=== PATIENT | male | born 1970 | race African-American/Black ===

== ENCOUNTER → 2017-04-01 | Outpatient (CLI) | payer MEDICAID ==
--- NOTE | 2017-04-01 17:32 | RADIOLOGY REPORT (SQ) ---
EXAM DESCRIPTION: ANKLE LEFT COMPLETE; FOOT LEFT COMPLETE COMPLETED DATE/TIME: 04/01/2017 4:39 pm REASON FOR STUDY: PAIN IN LEFT ANKLE AND JOINTS OF LEFT FOOT M25.572 PAIN IN LEFT ANKLE AND JOINTS OF LEFT FOOT COMPARISON: None. NUMBER OF VIEWS: Six views. TECHNIQUE: AP, lateral, and oblique radiographic images acquired of the left ankle and left foot. LIMITATIONS: None. FINDINGS: MINERALIZATION: Normal. BONES: There is an old fracture of the distal fibula. There is peaking of the talar dome which can b e a secondary sign of tarsal coalition. JOINTS: No effusions. SOFT TISSUES: No soft tissue swelling. No foreign body. OTHER: No other significant finding. IMPRESSION: No acute findings. 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 This could be confirmed with CT. TECHNICAL DOCUMENTATION: JOB ID: [id number] [employer]- All Rights Reserved
== END ==
LOC: OD 16:21
PROVIDERS: ATTEND Family Medicine
DX: M25.572 Pain in left ankle and joints of left foot (principal)

== ENCOUNTER 2017-04-25 05:16 | Day surgery (SDC) | payer OTHER, MEDICAID ==
--- NOTE | 2017-04-18 09:34 | EKG REPORT ---
SEVERITY:- BORDERLINE ECG - SINUS RHYTHM NONSPECIFIC ST-T CHANGES ANTERIOR LEADS. : Confirmed by: Montana Wilson MD 18-Apr-2017 09:33:34
[2017-04-18 09:36] LABS: APPEARANCE,URINE CLEAR; BILIRUBIN,URINE NEGATIVE (NEGATIVE); COLOR,URINE YELLOW; GLUCOSE, URINE NEGATIVE (NEGATIVE); KETONES,URINE NEGATIVE (NEGATIVE); LEUKOCYTE ESTERASE,URINE NEGATIVE (NEGATIVE); NITRITE,URINE NEGATIVE (NEGATIVE); PROTEIN,URINE NEGATIVE (NEGATIVE); URINE SPECIFIC GRAVITY 1.023; UROBILINOGEN,URINE NEGATIVE mg/dL (<2.0)
[2017-04-18 09:43] LABS: ABSOLUTE BASOPHILS # (AUTO) 0.1 10^3/uL (0.0-0.2); ABSOLUTE EOSINOPHILS # (AUTO) 0.3 10^3/uL (0.0-0.6); ABSOLUTE LYMPHOCYTES (AUTO) 2.4 10^3/uL (0.5-4.7); ABSOLUTE MONOCYTES (AUTO) 0.4 10^3/uL (0.1-1.4); ABSOLUTE NEUT (AUTO) 3.1 10^3/uL (1.7-8.2); BASOPHILS % (AUTO) 1.2 % (0-2); EOSINOPHILS % (AUTO) 4.9 % (0-6); HEMATOCRIT 41.3 % (37.9-51.0); HEMOGLOBIN 13.7 g/dL (13.5-17.0); LYMPHOCYTES % (AUTO) 38.1 % (13-45); MEAN CORPUSCULAR HEMOGLOBIN 27.6 pg (27.0-33.4); MEAN CORPUSCULAR HGB CONC 33.3 g/dL (32.0-36.0); MEAN CORPUSCULAR VOLUME 83 fl (80-97); MONOCYTES % (AUTO) 5.7 % (3-13); PLATELET COUNT 331 10^3/uL (150-450); RED BLOOD COUNT 4.98 10^6/uL (4.35-5.55); RED CELL DISTRIBUTION WIDTH 14.6 % (11.5-14.0); SEGMENTED NEUTROPHILS % (AUTO) 50.1 % (42-78); TOTAL CELLS COUNTED % (AUTO) 100 %; WHITE BLOOD COUNT 6.2 10^3/uL (4.0-10.5)
[2017-04-18 10:01] LABS: ANION GAP 10 (5-19); BLOOD UREA NITROGEN 14 mg/dL (7-20); CALCIUM 9.2 mg/dL (8.4-10.2); CARBON DIOXIDE 27 mmol/L (22-30); CHLORIDE 104 mmol/L (98-107); GLUCOSE 147 mg/dL (75-110); POTASSIUM 4.5 mmol/L (3.6-5.0); SODIUM 141.1 mmol/L (137-145)
--- NOTE | 2017-04-18 13:34 | RADIOLOGY REPORT (SQ) ---
EXAM DESCRIPTION: CHEST PA/LATERAL COMPLETED DATE/TIME: 04/18/2017 9:13 am REASON FOR STUDY: PRE OP COMPARISON: 04/08/2012 EXAM PARAMETERS: NUMBER OF VIEWS: two views TECHNIQUE: Digital Frontal and Lateral radiographic views of the chest acquired. RADIATION DOSE: NA LIMITATIONS: none FINDINGS: LUNGS AND PLEURA: No opacities, masses or pneumothorax. No pleural effusion. MEDIASTINUM AND HILAR STRUCTURES: No masses or contour abnormalities. HEART AND VASCULAR STRUCTURES: Heart normal size. No evidence for failure. BONES: No acute findings. HARDWARE: None in the chest. OTHER: No other significant finding. IMPRESSION: NO SIGNIFICANT RADIOGRAPHIC FINDING IN THE CHEST. TECHNICAL DOCUMENTATION: JOB ID: [id number] [employer]- All Rights Reserved Reading location - IP/workstation name: [email or web address]
[~2017-04-25 05:16] MED LIST: CEFAZOLIN 2 GM/D5W RTU 2 GM/50 ML RTUPB IV PRN; LACTATED RINGERS 1000 ML IV PRN; LIDOCAINE 0.5% INJ-PF (5 MG/ML) 50 ML SDV SUBCUT PRN
[2017-04-25] MEDS ORDERED: EPINEPHRINE INJ/PF 1 MG/1 ML AMPULE ONE (06:33)
[2017-04-25] MEDS ORDERED: BUPIVACAINE HCL 0.5 % INJ/PF 30 ML SDV ONE (06:33)
[2017-04-25] MEDS ORDERED: MIDAZOLAM 2 MG/2 ML INJ ONE ×2 (07:11→07:24)
[2017-04-25] MEDS ORDERED: HYDROMORPHONE HCL INJ/PF 2 MG/ML AMPULE ONE (07:11)
[2017-04-25] MEDS ORDERED: FENTANYL CITRATE INJ/PF 250 MCG/5 ML AMPULE ONE (07:11)
[2017-04-25] MEDS ORDERED: PROPOFOL INJ 200 MG/20 ML VIAL IV ONE (07:12)
[2017-04-25] MEDS ORDERED: ACETAMINOPHEN 100 ML IV ONE (07:12)
[2017-04-25] MEDS ORDERED: DEXMEDETOMIDINE INJ 80 MCG/20 ML VIAL IV ONE (07:12)
[2017-04-25] MEDS ORDERED: METOCLOPRAMIDE HCL INJ/PF 10 MG/2 ML SDV ONE (07:23)
[2017-04-25] MEDS ORDERED: FAMOTIDINE INJ/PF 20 MG/2 ML SDV IV ONE (07:24)
[2017-04-25] MEDS ORDERED: ONDANSETRON HCL INJ/PF 4 MG/2 ML SDV IV PRN (11:38)
[2017-04-25] MEDS ORDERED: FENTANYL CITRATE INJ/PF 100 MCG/2 ML AMPUL IV PRN ×3 (11:38)
[2017-04-25] MEDS ORDERED: DIPHENHYDRAMINE HCL 50 MG/ML VIAL IV PRN (11:38)
[2017-04-25] MEDS ORDERED: MEPERIDINE HCL/PF INJ 25 MG/1 ML DISP.SYRIN IV PRN (11:38)
[2017-04-25] MEDS ORDERED: PROMETHAZINE HCL INJ 25 MG/1 ML VIAL IV PRN ×2 (11:38)
--- NOTE | 2017-04-25 12:09 | Discharge Summary ---
Discharge Summary (SDC) - Discharge Final Diagnosis: Status post posterolateral corner reconstruction and diagnostic knee arthroscopy Date of Surgery: 04/25/17 Discharge Date: 04/25/17 Condition: Good Treatment or Instructions: Patient to wear knee immobilizer except for showers. Toe-touch weightbearing with crutches or walker for ambulation. Remove dressing in 5 days and okay to shower. Follow-up in the office in 10-14 days. Prescriptions: Oxycodone HCl/Acetaminophen [Percocet 7.5-325 mg Tablet] 1 - 2 tab PO ASDIR PRN #40 tab PRN Reason: Referrals: MIKALA EATON MD [Primary Care Provider] - Discharge Diet: As Tolerated Respiratory Treatments at Home: Deep Breathing/Coughing Discharge Activity: No Driving, Keep Legs Elevated, No Lifting/Push/Pulling Home Care Assistance: None Needed Adaptive Devices on Discharge: Axillary Crutches, Standard Walker Report the Following to Your Physician Immediately: Shortness of Breath, Vomiting, Increase in Pain, Yellow Skin, Fever over 101 Degrees, Unusual Bleeding, Redness, Swelling, Warmth, Increased Soreness, Drainage-Yellow, Drainage-Ledbetter, Drainage-Green
[2017-04-25] MEDS ORDERED: OXYCODONE-ACETAMINOPHEN 5-325 MG TABLET PO PRN ×2 (12:11)
[2017-04-25] MEDS ORDERED: FENTANYL CITRATE INJ/PF 100 MCG/2 ML AMPUL ONE (12:20)
--- NOTE | 2017-04-25 12:24 | Operative Report ---
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 Questionable ACL tear. POSTOPERATIVE DIAGNOSIS: Right knee posterolateral corner tear and high-grade partial ACL tear OPERATION: Right knee diagnostic arthroscopy and open posterolateral corner reconstruction utilizing Achilles allograft SURGEON: ANTONIA MAC ANESTHESIA: GA TISSUE REMOVED OR ALTERED: None COMPLICATIONS: None ESTIMATED BLOOD LOSS: 75 mL INTRAOPERATIVE FINDINGS: As above PROCEDURE: After receiving his preoperative antibiotics in the holding area patient was brought to the operating room where he was induced and intubated in the supine position. Timeout was done identifying the right knee is a correct site. Thigh tourniquet was applied in the right lower extremity was prepped and draped in a normal sterile surgical fashion. Timeout was done identifying the right knee is a correct site. Esmarch was used to exsanguinate the extremity and the tourniquet was inflated at 320 mmHg. 11 blade was used to establish my portal sites and then I distended the capsule with sterile saline solution. Diagnostic arthroscopy showed some focal grade 3 and 4 changes of the medial femoral condyle and grade 1 changes of the tibial plateau on the lateral side. Menisci's were intact. PCL was intact. ACL had a small stump and partial tear of the ACL with some laxity. I believe greater than 50% of the ACL is torn. I believe the remaining strands are incompetent. There is no loose bodies. Fluid from the knee was removed and then we proceeded to prepare the graft in the back table. We were able to use Achilles allograft with a bone block. We trimmed it to fit a 10 mm hole using clippers and saw and rondure. We split the tendon down the middle and used a fiber loop to secure the ends of both tendons. We will passed entire thing through a 10. The individual limbs the tendon were passed through 7-1/2 holes. A moist sponge was used to protect the graft and I proceeded then to do my incision on the lateral aspect of the knee adjacent to the fibular head and curving it through the lateral femoral condyle. Bovie was used to coagulate any bleeders. I proceeded then to use Metzenbaum scissors to expose the subtenons tissue and expose the IT band. Retractors were placed and fibular head was palpated. The biceps for Noam tendon was also visualized and was incompetent but also allowed us to visualize the common peroneal tendon which was released and tagged with a vessel loop. The fibular head was exposed and released with a 15 blade. The remanent of the collateral ligament was seen and pulled and I was able to barbara the point of insertion on the lateral femoral condyle. Proceeded to then I used a guide and noticed that my tunnel would be 35 mm tunnel and I proceeded to drill a 8 mm tunnel. I dissected posterior to the fibular head all way back to the posterior lateral tibial condyle and was able to dissect and feel the cortex. Anteriorly I exposed the greatest tubercle and applied my guide. I was able to drill and pain successfully and then overdrilled with a 10 mm reamer. I had a malleable as well as my finger in the back and knee protecting when I both used the pin and reamer. Noted after 85 minutes of the tourniquet patient had a venous congestion and was oozing through the venous bleed and therefore tourniquet was let down. Sponges were applied and 5 minutes later after controlling bleeding we proceeded with the surgery. There is no venous bleed at that point. I used a fiber stick to pass through the tibia and retreated to the back of the knee. This allowed me then to place a suture for settling of the graft down the road. Also satisfied with my tibial and fibular tunnel I then did my femoral tunnel by splitting the IT band exposing a calcified remanent of the tear. The calcified body was removed and the condyle was exposed and pinned. Made sure that I was going superior and proximal to avoid future tunnels for ACL. The pin was passed through the medial aspect of the thigh. Used a 10 mm reamer and drilled a 30 mm tunnel knowing that her bone plug was 25 mm. Suture was passed through the end of the pin and pulled out medially. This then allowed us then to shuttle the bone plug into the femoral tunnel. While pulling tension we were able then to notch and tap and placed a 7 x 23 bio composite screw to fix our bone plug. I pulled and did not have any give. I was able then to dissect in the deep tissue and shuttle the 2 limbs both beneath and superior and superficial to the capsule. I placed the knee in valgus with 20 of flexion and after passing my limb through the fibular tunnel secured it by a 7 x 23 bio composite screw. The other limb was passed in conjunction with the remaining limb of the fibula through the predrilled hole in the tibia and both limbs were coming anteriorly. The knee in valgus and 20 of flexion was held and tension on the graft was placed in a 10 x 35 by composite screw was used to fix the 2 remaining limbs in the tibial tunnel. Once this was flushed I was able to cut the remaining strands and I attest my repair. There was a noticed difference in laxity versus the varus thrust that had done prior to proceeding with surgery. Irrigation was used to clean the wound and then up reapproximated the permanent popliteal tendon and the remnant biceps for Noam to the remaining tissue. I reapproximated the IT band closing with a 0 Vicryl and #1 Vicryl. I removed the vessel loop and make sure that the peroneal tendon was free. Proceeded to approximate the tissue with 0 Vicryl and then 2-0 Vicryl for dermis and then 4-0 Monocryl running subcuticular stitch was done and Dermabond and Steri-Strips were applied. 4 x 4 dressing followed by soft roll and Jacky bandage was applied and then the drapes were removed and the patient was extubated and sent to PACU in a stable condition. Patient was placed in a knee immobilizer.
[2017-04-25] MEDS ORDERED: SUCCINYLCHOLINE CHLORIDE INJ 200 MG/10 ML VIAL ONE (13:38)
[2017-04-25] MEDS ORDERED: PHENYLEPHRINE HCL INJ/PF 10 MG/1 ML SDV ONE (13:38)
[2017-04-25] MEDS ORDERED: KETOROLAC TROMETHAMINE 60 MG/2 ML SDV ONE (13:38)
[2017-04-25] MEDS ORDERED: LIDOCAINE 2% INJ-PF (20 MG/ML) 2 ML AMPUL ONE (13:38)
[2017-04-25] MEDS ORDERED: DEXAMETHASONE SOD PHOSPHATE INJ 4 MG/1 ML VIAL ONE (13:38)
[2017-04-25] MEDS ORDERED: ONDANSETRON HCL INJ/PF 4 MG/2 ML SDV ONE (13:38)
[2017-04-25 16:42] VITALS: BP 137/84
== END 2017-04-25 16:35 | disposition home or self-care (01) ==
LOC: OROUT 05:16
PROVIDERS: ATTEND Orthopaedic Surgery
PROC: 0MQN0ZZ Repair Right Knee Bursa and Ligament, Open Approach (ICD-10-PCS; 2017-04-25)
PROC: 0SJC4ZZ Inspection of Right Knee Joint, Percutaneous Endoscopic Approach (ICD-10-PCS; principal; 2017-04-25 07:30)
DX: S83.511S Sprain of anterior cruciate ligament of right knee, sequela (principal); S83.421S Sprain of lateral collateral ligament of right knee, sequela; X58.XXXS Exposure to other specified factors, sequela; I10 Essential (primary) hypertension; Z79.899 Other long term (current) drug therapy
CPT/HCPCS: 1400; 36415; 71046; 80048; 81001; 82947; 84132; 85025; 93005; 93010; C1713; J0131; J0171; J0330; J0690; J1100; J1170; J1885; J2250; J2370; J2405; J2704; J2765; J3010; J3490; L1830; S0028

== ENCOUNTER → 2019-12-07 | Outpatient (CLI) | payer MEDICAID ==
--- NOTE | 2019-12-07 13:55 | RADIOLOGY REPORT (SQ) ---
EXAM DESCRIPTION: LUMBAR SPINE COMPLETE IMAGES COMPLETED DATE/TIME: 12/07/2019 10:04 am REASON FOR STUDY: LOW BACK PAIN M54.5 LOW BACK PAIN COMPARISON: None. NUMBER OF VIEWS: Five views including obliques. TECHNIQUE: AP, lateral, oblique, and sacral radiographic images acquired of the lumbar spine. LIMITATIONS: None. FINDINGS: MINERALIZATION: Normal. SEGMENTATION: Normal. No transitional anatomy. ALIGNMENT: Normal. VERTEBRAE: Maintained height. No fracture or worrisome bone lesion. DISCS: Preserved height. No significant osteophytes or end plate irregularity. POSTERIOR ELEMENTS: Pedicles and facets are intact. No pars defect or posterior arch defects. HARDWARE: None in the spine. PARASPINAL SOFT TISSUES: Normal. PELVIS: Intact as visualized. No fractures or worrisome bone lesions. SI joints intact. OTHER: No other significant finding. IMPRESSION: NORMAL 5 VIEW LUMBAR SPINE. TECHNICAL DOCUMENTATION: JOB ID: [id number] [employer]- All Rights Reserved Reading location - IP/workstation name: [email or web address]
== END ==
LOC: OD 09:42
PROVIDERS: ATTEND Family Medicine
DX: M54.5 Low back pain (principal)
CPT/HCPCS: 72110